=== PATIENT | female | born 1945 | race Caucasian/White ===

== ENCOUNTER → 2018-03-28 | Outpatient (CLI) | payer MEDICARE ==
[~2018-03-28] MED LIST: ALLO100 PO; ALPR.5 PO; Ativan1 MG SL; BUPR150ER PO; CONEST1.25 PO; Carisoprodol350 MG PO; DILT120 PO; ESCI20 PO; Inderal60 MG; LORA.5 PO; LOSARTAN POTAS100 MG PO; METO50 PO; MONT10T PO; Omeprazole20 M1; Synthroid88 MCG PO; TOLT4 PO; TRAM50 PO
[2018-03-28 10:58] LABS: Protein, Urine Random 13.3 mg/dL (0.0-11.9)
== END ==
LOC: LAB 08:30 → LAB SHORT 08:30
PROVIDERS: Internal Medicine
DX: N18.2 Chronic kidney disease, stage 2 (mild) (principal)
CPT/HCPCS: 82570; 84156

== ENCOUNTER 2018-07-28 11:09 | Emergency (ER) | payer MEDICARE ==
[~2018-07-28] VITALS: Ht 162.6 cm; Wt 80.7 kg
[2018-07-28] MEDS ORDERED: EUTHYROX112 MCG PO (11:30)
[2018-07-28] MEDS ORDERED: OLANZAPINE15 MG PO (11:31)
[2018-07-28 11:58] LABS: BASOPHILS ABSOLUTE AUTO 0.03 K/mm3 (0.00-0.23); BASOPHILS PERCENT AUTO 0 % (0-2); EOSINOPHILS ABSOLUTE AUTO 0.05 K/mm3 (0.00-0.68); EOSINOPHILS PERCENT AUTO 1 % (0-6); Hematocrit 42.1 % (33.0-51.0); Hemoglobin 13.1 g/dL (11.5-16.0); IMMATURE GRAN ABSOLUTE AUTO 0.01 K/mm3 (0.00-0.10); IMMATURE GRAN PERCENT AUTO 0 % (0-1); LYMPHOCYTES PERCENT AUTO 11 % (21-46); MONOCYTES ABSOLUTE AUTO 0.52 K/mm3 (0.16-1.47); MONOCYTES PERCENT AUTO 6 % (4-13); Mean Corpuscular HGB 28.1 pg (26.0-34.0); Mean Corpuscular HGB Conc 31.1 g/dL (31.5-36.5); Mean Corpuscular Volume 90 fL (80-100); Mean Platelet Volume 9.7 fL (9.1-12.4); NEUTROPHILS ABSOLUTE AUTO 7.87 K/mm3 (1.96-9.15); NEUTROPHILS PERCENT AUTO 83 % (41-73); Platelet Count 426 K/mm3 (150-400); RDW Coefficient Variation 15.2 % (11.7-14.2); RDW Standard Deviation 50.4 fL (35.1-46.3); Red Blood Cell Count 4.66 M/mm3 (3.80-5.20); White Blood Cell Count 9.48 K/mm3 (4.00-11.30)
[2018-07-28 12:12] LABS: Alanine Aminotransfer (ALT/SGP 21 U/L (12-78); Albumin, Blood 3.7 g/dL (3.4-5.0); Albumin/Globulin Ratio 0.8 (0.8-1.8); Alk Phos 126 U/L (50-136); Anion Gap 8 mmol/L (6-16); Aspartate Aminotrans (AST/SGOT 24 U/L (12-37); Bilirubin, Total 0.7 mg/dL (0.1-1.0); Blood Urea Nitrogen 15 mg/dL (8-24); Bun/Creatinine Ratio 14.6 (12.0-20.0); CO2, Blood 25 mmol/L (21-32); Calcium, Blood 9.3 mg/dL (8.5-10.1); Chloride, Blood 109 mmol/L (98-108); Creatinine, Blood 1.03 mg/dL (0.40-1.00); Free Thyroxine 1.65 ng/dL (0.70-1.60); Globulin, Blood 4.4 g/dL (2.2-4.0); Glomerular Filtration Rate 56 (60-); Glucose, Blood 121 mg/dL (70-99); Potassium, Blood 3.4 mmol/L (3.5-5.5); Salicylate <1.7 mg/dL (2.8-20.0); Sodium, Blood 142 mmol/L (136-145); Total Protein, Blood 8.1 g/dL (6.4-8.2)
[2018-07-28 12:33] LABS: Acetaminophen, Random <2.0 ug/mL (10.0-30.0); Ethanol (Alcohol), Blood, Med <3 mg/dL
[2018-07-28 14:06] LABS: Source, Urine Clean Catch
[2018-07-28 14:32] LABS: Appearance, Urine Clear (Clear); Bilirubin, Urine Neg (Neg); Blood, Urine 1+ (Neg); Color, Urine Yellow (P-Yellow); Glucose Qualitative, Urine Neg (Neg); Ketones, Urine 3+ (Neg); Leukocyte Esterase, Urine Neg (Neg); Nitrite, Urine Neg (Neg); Protein, Urine 1+ (Neg); Specific Gravity, Urine 1.025 (1.003-1.022); Urobilinogen, Urine 1+ (Normal)
[2018-07-28 14:49] LABS: U Amphetamine Screen Not Detected; U Barbituate Screen Not Detected; U Benzodiazapine Screen DETECTED; U Buprenorphine Screen Not Detected; U Cannabinoids Screen Not Detected; U Cocaine Screen Not Detected; U Methadone Screen Not Detected; U Methamphetamine Screen Not Detected; U Opiates Screen Not Detected; U Oxycodone Screen Not Detected; U Phencyclidine Screen Not Detected; U Propoxyphene Screen Not Detected
[2018-07-28 14:59] LABS: Bacteria Not Seen /hpf; Red Blood Cells, Urine 0-2 /hpf (0-2); Squamous Epithelial Cells Few /hpf (Few); White Blood Cells, Urine 0-2 /hpf (0-5)
== END 2018-07-28 15:36 | disposition home or self-care (01) ==
LOC: ER 11:09
PROVIDERS: Emergency Medicine
DX: F32.9 Major depressive disorder, single episode, unspecified (principal); F41.9 Anxiety disorder, unspecified; Z88.0 Allergy status to penicillin; Z88.2 Allergy status to sulfonamides; Z88.5 Allergy status to narcotic agent; Z88.8 Allergy status to other drugs, medicaments and biological substances; Z79.899 Other long term (current) drug therapy
CPT/HCPCS: 36415; 80053; 81001; 84439; 84443; 85025; 99284; G0480; P9612

== ENCOUNTER 2018-07-30 08:36 | Inpatient (IN) | payer MEDICARE ==
[~2018-07-30] VITALS: Ht 165.1 cm; Wt 78.4 kg
[~2018-07-30 08:36] MED LIST changes: +EUTHYROX112 MCG PO; +OLANZAPINE15 MG PO
[2018-07-30 09:31] LABS: BASOPHILS ABSOLUTE AUTO 0.04 K/mm3 (0.00-0.23); BASOPHILS PERCENT AUTO 0 % (0-2); EOSINOPHILS ABSOLUTE AUTO 0.02 K/mm3 (0.00-0.68); EOSINOPHILS PERCENT AUTO 0 % (0-6); Hematocrit 39.6 % (33.0-51.0); Hemoglobin 12.5 g/dL (11.5-16.0); IMMATURE GRAN ABSOLUTE AUTO 0.03 K/mm3 (0.00-0.10); IMMATURE GRAN PERCENT AUTO 0 % (0-1); LYMPHOCYTES ABSOLUTE AUTO 1.17 K/mm3 (0.84-5.20); LYMPHOCYTES PERCENT AUTO 12 % (21-46); MONOCYTES ABSOLUTE AUTO 0.55 K/mm3 (0.16-1.47); MONOCYTES PERCENT AUTO 6 % (4-13); Mean Corpuscular HGB 27.9 pg (26.0-34.0); Mean Corpuscular HGB Conc 31.6 g/dL (31.5-36.5); Mean Corpuscular Volume 88 fL (80-100); Mean Platelet Volume 9.9 fL (9.1-12.4); NEUTROPHILS ABSOLUTE AUTO 8.18 K/mm3 (1.96-9.15); NEUTROPHILS PERCENT AUTO 82 % (41-73); Platelet Count 429 K/mm3 (150-400); RDW Coefficient Variation 15.2 % (11.7-14.2); RDW Standard Deviation 48.7 fL (35.1-46.3); Red Blood Cell Count 4.48 M/mm3 (3.80-5.20); White Blood Cell Count 9.99 K/mm3 (4.00-11.30)
[2018-07-30 09:49] LABS: Albumin, Blood 3.6 g/dL (3.4-5.0); Albumin/Globulin Ratio 0.9 (0.8-1.8); Bilirubin, Total 1.3 mg/dL (0.1-1.0); Bun/Creatinine Ratio 19.6 (12.0-20.0); Creatinine, Blood 1.12 mg/dL (0.40-1.00); Free Thyroxine 1.67 ng/dL (0.70-1.60); Globulin, Blood 4.2 g/dL (2.2-4.0); Potassium, Blood 3.1 mmol/L (3.5-5.5); Total Protein, Blood 7.8 g/dL (6.4-8.2)
[2018-07-30 09:52] LABS: Source, Urine Clean Catch
[2018-07-30 10:09] LABS: Appearance, Urine Clear (Clear); Blood, Urine 1+ (Neg); Color, Urine Yellow (P-Yellow); Glucose Qualitative, Urine Neg (Neg); Ketones, Urine 4+ (Neg); Leukocyte Esterase, Urine 1+ (Neg); Nitrite, Urine Neg (Neg); Protein, Urine 2+ (Neg); Specific Gravity, Urine 1.025 (1.003-1.022); Urobilinogen, Urine 2+ (Normal)
[2018-07-30 10:48] LABS: Bilirubin, Urine 2+ (Neg); Red Blood Cells, Urine 0-2 /hpf (0-2); White Blood Cells, Urine 0-2 /hpf (0-5)
[2018-07-30 10:49] LABS: Bacteria Few /hpf; Mucus Mod (0-Heavy); Squamous Epithelial Cells Few /hpf (Few)
[2018-07-30 10:50] LABS: Hyaline Casts 0-2 /lpf (0-2)
[2018-07-30 10:51] LABS: U Amphetamine Screen Not Detected; U Barbituate Screen Not Detected; U Benzodiazapine Screen DETECTED; U Buprenorphine Screen Not Detected; U Cannabinoids Screen Not Detected; U Cocaine Screen Not Detected; U Methadone Screen Not Detected; U Methamphetamine Screen Not Detected; U Opiates Screen Not Detected; U Oxycodone Screen Not Detected; U Phencyclidine Screen Not Detected; U Propoxyphene Screen Not Detected
--- NOTE | 2018-07-30 16:59 | NUR ---
PT BP AT THIS TIME IS 170/70, DR MILLAN. PT ALSO REQUESTED A DOSE OF ATIVAN. NO NEW ORDERS AT THIS TIME. DR MAYBERRY STATED THAT SHE SUSPECTS THE ATIVAN TO BE CONTRIBUTING TO HER CONFUSION. PT RESTING QUIETLY IN HER BED AT THIS TIME, WATCHING TV. BED IN LOW POSITION, CALL LIGHT WITHIN REACH.
--- NOTE | 2018-07-30 17:44 | NUR ---
PATIENT DECLINED DINNER. I OFFERED ALTERNATIVE AND PATIENT STILL DECLINED AND STATED SHE WAS NOT HUNGRY. TRAY WAS REMOVED FROM ROOM. RN NOTIFIED.
--- NOTE | 2018-07-30 18:22 | NUR ---
PATIENT AMBULATED IN HALLWAYS WITH ME X2 AROUND THE LOOP THIS SHIFT WITH STAND BY ASSISTANCE.
--- NOTE | 2018-07-30 18:26 | NUR ---
SHIFT SUMMARY/ADMIT NOTE PT ARRIVED TO ROOM AT 1410. NURSE RECIEVED BEDSIDE REPORT FROM ROZINA CHRISTIANSON. PT AXO TO SELF AND PLACE BUT IS CONFUSED AND CANNOT GIVE ACCURATE MEDICAL HISTORY. PT COMPLAINS OF ANXIETY, NURSE UTILIZED ACTIVE LISTENING AND THERAPEUTIC COMMUNICATION, AMBULATION AND STIMULUS REDUCTION TO REDUCE PT STRESS LEVEL. PT DENIES PAIN, SOB AND NV. IV PATENT AND INFUSING AT THIS TIME. PT HAS ELEVATED BP, DR AWARE. PT CONCERNED THOUGH SHE STATES THAT SHE DOES NOT CHECK THIS AT HOME. BED IN LOW POSITION, CALL LIGHT WITHIN REACH, BED ALARM ON. PT CALLS APPROPRIATELY THUS FAR.
[2018-07-31 05:04] LABS: BASOPHILS ABSOLUTE AUTO 0.03 K/mm3 (0.00-0.23); BASOPHILS PERCENT AUTO 0 % (0-2); EOSINOPHILS ABSOLUTE AUTO 0.03 K/mm3 (0.00-0.68); EOSINOPHILS PERCENT AUTO 0 % (0-6); Hematocrit 37.1 % (33.0-51.0); Hemoglobin 11.8 g/dL (11.5-16.0); IMMATURE GRAN ABSOLUTE AUTO 0.03 K/mm3 (0.00-0.10); IMMATURE GRAN PERCENT AUTO 0 % (0-1); LYMPHOCYTES ABSOLUTE AUTO 1.05 K/mm3 (0.84-5.20); LYMPHOCYTES PERCENT AUTO 12 % (21-46); MONOCYTES ABSOLUTE AUTO 0.58 K/mm3 (0.16-1.47); MONOCYTES PERCENT AUTO 6 % (4-13); Mean Corpuscular HGB 28.2 pg (26.0-34.0); Mean Corpuscular HGB Conc 31.8 g/dL (31.5-36.5); Mean Corpuscular Volume 89 fL (80-100); NEUTROPHILS ABSOLUTE AUTO 7.36 K/mm3 (1.96-9.15); NEUTROPHILS PERCENT AUTO 81 % (41-73); Platelet Count 421 K/mm3 (150-400); RDW Coefficient Variation 15.1 % (11.7-14.2); RDW Standard Deviation 49.1 fL (35.1-46.3); Red Blood Cell Count 4.18 M/mm3 (3.80-5.20); White Blood Cell Count 9.08 K/mm3 (4.00-11.30)
[2018-07-31 05:28] LABS: Anion Gap 12 mmol/L (6-16); Blood Urea Nitrogen 16 mg/dL (8-24); CO2, Blood 22 mmol/L (21-32); Calcium, Blood 8.4 mg/dL (8.5-10.1); Chloride, Blood 110 mmol/L (98-108); Glucose, Blood 114 mg/dL (70-99); Potassium, Blood 2.9 mmol/L (3.5-5.5); Sodium, Blood 144 mmol/L (136-145)
--- NOTE | 2018-07-31 05:50 | NUR ---
PT FEELING ANXIOUS *LATE ENTRY* AT 2245, PT VERY ANXIOUS UP ON SIDE OF BED & HAS BEEN WALKING IN HALLS W/ASSISTANCE 3X. STATES SHE MAY BE HAVING "PALPATATIONS." INFORMED HOSPITALIST [place] & 6MG MELATONIN WAS GIVEN PER ORDERS TO HELP RELAX PT. AT 0115, PT REPORTS STILL FEELING "VERY ANXIOUS & HAVING DIFFICULTY SLEEPING." STATES MELATONIN HAS NOT HELP & "I'M AFRAID TO FALL ASLEEP BECAUSE I MIGHT NOT WAKE UP." SAT W/PT & LISTENED TO HER CONCERNS SHE REPORTS SHE FEELS SO ANXIOUS BECAUSE OF HER "MEMORY" AND NOT KNOWING WHY SHE IS SO CONFUSED. NOTIFIED DR. DEJESUS @0140 & HE ORDERED 2.5MG HALDOL IV Q6 PRN. HOWEVER WHEN I WENT INTO PT ROOM TO GIVE MEDICATION SHE REFUSED STATING, "I'VE HEARD OF THAT MEDICATION & IT'S A HEAVY ANTIPSYCHOTIC." EDUCATED PT THE DOSE WAS VERY LOW & THE MEDICATION WAS USED FOR MANY DIFFERENT PURPOSES & SHE STILL REFUSED. CHARGE NURSE ESTELLE Foster WAS NOTIFIED.
--- NOTE | 2018-07-31 07:31 | NUR ---
SHIFT SUMMARY PT HAS BEEN AWAKE ALL NIGHT. SHE IS AOX2, VERY CONFUSED & ANXIOUS. CAN STATE HER NAME & THAT SHE IS IN THE HOSPITAL BUT DOES NOT KNOW THE TOWN WE ARE IN OR WHAT TOWN SHE LIVES IN, READ PREVIOUS NOTE. VSS. DENIES N/V, SOB OR PAIN. PT HAS BEEN UP MULTIPLE TIMES AMBULATING THE [place] W/PRICING COORDINATOR. FOUND ATIVAN & SYNTHROID IN PTS PURSE THIS AM & GAVE TO DAY SHIFT RN TO BE LOCKED AWAY SAFELY. CALL LIGHT IS IN REACH & PT REMEMBERS HOW TO USE APPROPRIATELY.
[2018-07-31 07:48] LABS: Bun/Creatinine Ratio 19.8 (12.0-20.0); Creatinine, Blood 0.81 mg/dL (0.40-1.00); Glomerular Filtration Rate >60 (60-)
--- NOTE | 2018-07-31 11:42 | NUR ---
Patient was sitting on the edge of her bed and alert when I entered patient's room. I introduced myself and patient welcomed me. Patient's brother, Leroy was in the room when I entered but patient asked to speak with me in private and so Leroy stepped out. Patient openly shared about the loss of her , her addiction and her current confusion. I listened empathically, explored patient's confucianist belief's, I provided spiritual direction and I provided prayer. Patient responded well to all interventions and displayed evidence of restored marek and peace.
[2018-07-31] MEDS ORDERED: LORA1 PO (16:41)
[2018-07-31] MEDS ORDERED: METO25 PO (16:43)
[2018-07-31] MEDS ORDERED: ELIQUIS5 MG PO (16:44)
[2018-07-31] MEDS ORDERED: BUME1 PO (16:45)
[2018-07-31] MEDS ORDERED: POTA10T PO (16:46)
[2018-07-31] MEDS ORDERED: VENL150ER PO (16:47)
--- NOTE | 2018-07-31 17:53 | NUR ---
Asked by RN to come to pt's room to discuss Durable Power of Support Service Tech. Pt's brother had purchased the forms and wanted me to fill them out for them. Pt appeared a bit confused. I was uncomfortable completing the forms due to pt's confusion. Advised brother that he and pt could complete this document at a later time when pt was more mentally clear. I will remain available.
--- NOTE | 2018-07-31 19:26 | NUR ---
SHIFT SUMAMRY: NO ACUTE CHANGES TO REPORT THIS SHIFT. PT A&O X2; ANXIOUS; COOPERATIVE WITH CARE. MEDICATIONS RECONCILED THROUGH TIM'S IN [place]. LARGE PO MEDS IN [place]PLESAUCE; SMALLER MEDS WHOLE IN WATER. PSYCH MEDS RESTARTED THIS PM. REPORT GIVEN TO ONCABRAHAM HANDY.
--- NOTE | 2018-08-01 02:50 | NUR ---
07/31/18 2130 PT SITTING ON SIDE OF BED AND UNABLE TO UNDERSTAND CALL SYSTEM. REQUESTED TO HAVE TV CHANNEL CHANGED. INSTRUCTED ON CALLING BUTTON FOR NURSES AND BUTTONS FOR TV. "OH. OKAY." MEDS GIVEN AND THEN PT ASKED HOW TO CHANGE CHANNEL AGAIN. INSTRUCTED AGAIN. ASSISTED TO BED AND BED ALARM ON.
[2018-08-01 05:36] LABS: BASOPHILS ABSOLUTE AUTO 0.04 K/mm3 (0.00-0.23); BASOPHILS PERCENT AUTO 1 % (0-2); EOSINOPHILS ABSOLUTE AUTO 0.13 K/mm3 (0.00-0.68); EOSINOPHILS PERCENT AUTO 2 % (0-6); Hemoglobin 11.3 g/dL (11.5-16.0); IMMATURE GRAN ABSOLUTE AUTO 0.01 K/mm3 (0.00-0.10); IMMATURE GRAN PERCENT AUTO 0 % (0-1); LYMPHOCYTES ABSOLUTE AUTO 1.87 K/mm3 (0.84-5.20); LYMPHOCYTES PERCENT AUTO 23 % (21-46); MONOCYTES ABSOLUTE AUTO 0.76 K/mm3 (0.16-1.47); MONOCYTES PERCENT AUTO 10 % (4-13); Mean Corpuscular HGB Conc 31.4 g/dL (31.5-36.5); Mean Corpuscular Volume 89 fL (80-100); Mean Platelet Volume 10.1 fL (9.1-12.4); NEUTROPHILS ABSOLUTE AUTO 5.23 K/mm3 (1.96-9.15); NEUTROPHILS PERCENT AUTO 65 % (41-73); Platelet Count 369 K/mm3 (150-400); RDW Coefficient Variation 15.3 % (11.7-14.2); RDW Standard Deviation 49.2 fL (35.1-46.3); Red Blood Cell Count 4.03 M/mm3 (3.80-5.20); White Blood Cell Count 8.04 K/mm3 (4.00-11.30)
[2018-08-01 06:01] LABS: Alanine Aminotransfer (ALT/SGP 19 U/L (12-78); Albumin, Blood 3.1 g/dL (3.4-5.0); Albumin/Globulin Ratio 0.9 (0.8-1.8); Alk Phos 98 U/L (50-136); Anion Gap 9 mmol/L (6-16); Aspartate Aminotrans (AST/SGOT 19 U/L (12-37); Bilirubin, Total 0.8 mg/dL (0.1-1.0); Blood Urea Nitrogen 9 mg/dL (8-24); Bun/Creatinine Ratio 10.6 (12.0-20.0); CO2, Blood 25 mmol/L (21-32); Calcium, Blood 8.5 mg/dL (8.5-10.1); Chloride, Blood 112 mmol/L (98-108); Creatinine, Blood 0.85 mg/dL (0.40-1.00); Globulin, Blood 3.4 g/dL (2.2-4.0); Glomerular Filtration Rate >60 (60-); Glucose, Blood 74 mg/dL (70-99); Magnesium, Blood 1.9 mg/dL (1.6-2.4); Sodium, Blood 146 mmol/L (136-145); Total Protein, Blood 6.5 g/dL (6.4-8.2)
--- NOTE | 2018-08-01 06:43 | NUR ---
08/01/18 0630 VITALS STABLE. SLEPT WELL AFTER MILD SEDATIVE/ANTI-ANXIETY. VOIDING QS.
--- NOTE | 2018-08-01 19:15 | NUR ---
SHIFT SUMMARY: NO ACUTE CHANGES TO REPORT THIS SHIFT. PT A&O x3; CALM AND COOEPRATIVE WITH CARE. NO C/O PAIN OR NAUSEA THIS SHIFT. HOME PSYCH MEDS RESTARTED; PATIENT DISPOSITION IMPROVING. REPORT GIVEN TO ONCOMING RN.
--- NOTE | 2018-08-02 06:28 | NUR ---
08/02/18 0600 PT MORE ALERT THIS SHIFT. ALSO SHE HAS BEEN LESS ANXIOUS. VITALS STABLE AND HAD ONLY MILD TOOTH ACHE BUT DECLINED PAIN MED. ORAL INTAKE GOOD.
--- NOTE | 2018-08-02 18:31 | NUR ---
PT IS ALERT ORIENTED X2, WHEN ASKED WHERE SHE LIVED SHE COULDNT REMEMBER, THE PT WAS UP IND IN HER ROOM STEADY ON HER FEET, THE APPEARS TO BE BREATHING EASILY ON RA, THE PT WAS MEDICATED FOR HEAD ACHE X1 TODAY WITH TYLENOL WITH GOOD RESULTS, FAMILY WAS IN TO SEE THE PT, THE PT THIS AM REPORTED THAT SHE FELT AFFRAID AT THIS TIME TO RETURN TO HOME BY HERSELF, CALL LIGHT IN REACH,
--- NOTE | 2018-08-03 04:10 | NUR ---
SHIFT SUMMARY PT AWAKE, LYING FOWLERS DURING SHIFT REPORT, WATCHING TV. APPEARED WEAK AND SLOW TO RESPOND. PER REPORT, PT CONFUSED AT HOME R/T UTI AND POSSIBLE OVER MEDICATING SELF. ADMITTED FOR ACUTE ENCEPHALOPATHY. PER REPORT, IN LAST 6 MONTHS AND PT NOT DOING WELL ON HER OWN. HOME IS AN UNCLEAN DISASTER. PT IS PLEASANT BUT SOMEWHAT CONFUSED. PT REQUIRES FREQUENT ORIENTATION TO USE OF CALL LT. PT WILL SIT ON EOB AND WAIT FOR SOMEONE TO COME IN, INSTEAD OF CALLING FOR NEEDS. PT ALSO CAN'T REMEMBER WHAT SHE HAS ASKED FOR OR EVEN THAT SHE DID ASK FOR SOMETHING. SEEMS FEARFUL OF STAYING ALONE IN HER RM AND REQUESTED THAT WE COME BACK OFTEN TO CHECK ON HER. ASSURANCE OFFERED. PT HAS RESTED QUIETLY WITH EYES CLOSED, RESP E/U, SINCE FINALLY GOING TO SLEEP. NO S/SX OF DISTRESS NOTED. HAD BEEN UP TO BTHRM INDEPENDANTLY WHEN AWAKE. PT ASKED ABOUT MEASURING HER I&O'S AND THEN REPORTED THAT SHE HAD "DUMPED THE HAT" INTO THE TOILET BEFORE LETTING US KNOW THAT SHE HAD GONE. NO C/O PAIN. DENIED FURTHER NEEDS. CALL LT IN REACH. CONTINUING TO MONITOR.
[2018-08-03 14:09] LABS: BASOPHILS ABSOLUTE AUTO 0.03 K/mm3 (0.00-0.23); BASOPHILS PERCENT AUTO 0 % (0-2); EOSINOPHILS ABSOLUTE AUTO 0.15 K/mm3 (0.00-0.68); EOSINOPHILS PERCENT AUTO 2 % (0-6); Hematocrit 36.3 % (33.0-51.0); Hemoglobin 11.4 g/dL (11.5-16.0); IMMATURE GRAN ABSOLUTE AUTO 0.02 K/mm3 (0.00-0.10); IMMATURE GRAN PERCENT AUTO 0 % (0-1); LYMPHOCYTES ABSOLUTE AUTO 1.26 K/mm3 (0.84-5.20); LYMPHOCYTES PERCENT AUTO 17 % (21-46); MONOCYTES ABSOLUTE AUTO 0.51 K/mm3 (0.16-1.47); MONOCYTES PERCENT AUTO 7 % (4-13); Mean Corpuscular HGB 28.4 pg (26.0-34.0); Mean Corpuscular HGB Conc 31.4 g/dL (31.5-36.5); Mean Corpuscular Volume 90 fL (80-100); NEUTROPHILS ABSOLUTE AUTO 5.68 K/mm3 (1.96-9.15); NEUTROPHILS PERCENT AUTO 74 % (41-73); Platelet Count 369 K/mm3 (150-400); RDW Coefficient Variation 15.7 % (11.7-14.2); RDW Standard Deviation 52.2 fL (35.1-46.3); Red Blood Cell Count 4.02 M/mm3 (3.80-5.20); White Blood Cell Count 7.65 K/mm3 (4.00-11.30)
[2018-08-03 15:07] LABS: Albumin/Globulin Ratio 0.9 (0.8-1.8); Bilirubin, Total 0.4 mg/dL (0.1-1.0); Bun/Creatinine Ratio 16.2 (12.0-20.0); Calcium, Blood 8.7 mg/dL (8.5-10.1); Creatinine, Blood 0.99 mg/dL (0.40-1.00); Globulin, Blood 3.5 g/dL (2.2-4.0); Potassium, Blood 3.5 mmol/L (3.5-5.5); Total Protein, Blood 6.5 g/dL (6.4-8.2)
[2018-08-03 15:40] LABS: Thyroid Stimulating Hormone 2.93 uIU/mL (0.360-4.800)
--- NOTE | 2018-08-03 15:51 | NUR ---
PT IS A/OX2, TO PERSON AND PLACE, THE PT APPEARS TO HAVE SOME MILD AMNESIA, THE PT IS UP IND IN HER ROOM MILDLY ANXIOUS, REPORTS NOT FEELING SAFE WITH RETURN HOME ALONE, THE PT DENIED ANY PAIN T/O THE DAY, THE PT APPEARS TO BE BREATHING EASILY ON RA CALL LIGHT IN REACH, WILL CONTINUE TO MONITOR AND ASSESS FOR CHANGES
--- NOTE | 2018-08-04 03:20 | NUR ---
SHIFT SUMMARY NO ACUTE CHANGES TO PRESENT THIS SHIFT. PT HAS REMAINED PLEASANT AND CO-OP WITH CARE. RESTING QUIETLY AWAKE, DURING BS REPORT. NO C/O. BODY MOVEMENTS AND SPEECH ARE SLOW AND SOMEWHAT OFF. PT HAS DIFFICULTY GETTING OUT WHAT SHE WANTS TO SAY. THINKING SEEMS FOGGY. SHE APPEARS TO BE A LITTLE STRONGER EACH DAY. HAS BEEN INDEPENDANT TO BTHRM AND AMBULATES AROUND HER RM. BOTTOM OF HER GOWN FELL INTO THE TOILET AFTER START OF SHIFT AND PT SEEMED FRUSTRATED AT WHAT TO DO ABOUT IT. DID NOT KNOW TO ASK FOR NEW ONE OR EVEN WHAT TO SAY. PT'S BROTHER, WHO LIVES IN [place], IS TO COME IN AND DISCUSS SAFE DISCHARGE PLAN FOR PT. CALL LT IN REACH.
[2018-08-04 08:57] LABS: Antinuclear Antibody Screen Negative (Negative)
[2018-08-04 10:43] LABS: RPR Non-reactive (Nonreactive)
--- NOTE | 2018-08-04 12:50 | NUR ---
Spiritual care visit conducted. Patient was sitting up in bed and alert when I entered the room. I introduced myself and patient remembered my name and title. Patient stated that she was feeling anxious. I provided and calmimg presence and companionship. I quoted scriptures centered around peace and God's love and care for us. Patient displayed evidence of reduced stress and anxiety. Patient's brother Leroy entered the room and continued to help ease the patient. Patient was then wheeled out of the room on a wheelchair for an MRI.
--- NOTE | 2018-08-04 16:43 | NUR ---
SHIFT SUMMARY- PT AXO TO SELF, FAMILY, FOLLOWING DIRECTIONS AND DATE. PT CONFUSED/FORGETFUL AT TIMES. PT DENIES PAIN. DENIES SOB. RESP E/U ON RA. DENIES N/V. INDEPENDENT IN THE ROOM. PT WENT FOR MR OF HEAD WO CONTRAST TODAY. NO OTHER SIGNIFICANT CHANGES THIS SHIFT.
--- NOTE | 2018-08-05 04:41 | NUR ---
SHIFT SUMMARY NO ACUTE CHANGES TO PRESENT THIS SHIFT. VISITORS HERE DURING SHIFT REPORT. PT STATED THAT IT WAS HER SON FROM [place], WHO HAD COME UP TO CLEAN UP HER HOUSE. PT'S BROTHER FROM [place] TO ASSIST WITH SAFE D/C PLAN PT IS NOT ABLE TO CARE FOR HERSELF W/O ASSIST ANYMORE. PT HAS BEEN DEPRESSED SINCE HUSBANDS PASSING AND OVER MEDICATING HERSELF. PT SEEMS TO BE IMPROVING SOME OVER THE LAST COUPLE OF DAYS, BUT IS STILL SLOW TO RESPOND AND HAS DIFFICULTY REMEMBERING OFTEN. REPORTED THAT SHE HAS NOT HAD A BM SINCE 08/01 AND REQUESTED BOWEL CARE. PT WENT TO SLEEP BY TIME DR ALFARO COULD BE NOTIFIED FOR ORDERS. WILL START BOWEL CARE THIS AM, WHEN PT WAKES UP. INDEPENDANT IN RM. DENIES NEEDS. CALL LT IN REACH.
--- NOTE | 2018-08-06 06:07 | NUR ---
NOC SHIFT SUMMARY THIS PATIENT HAS BEEN PLESANT AND COOPERATIVE WITH CARE THIS NIGHT. SHE REQUESTED EYE DROPS THIS EVENING. SHORTLY AFTER EVENING MEDS SHE WENT TO SLEEP HAS SLEPT RESTFULLY THIS NIGHT. CURRENTLY APPEARS TO BE SLEEPING AND IN NO ACUTE DISTRESS. WILL CONTINUE TO MONITOR.
[2018-08-06 08:15] LABS: BASOPHILS ABSOLUTE AUTO 0.03 K/mm3 (0.00-0.23); BASOPHILS PERCENT AUTO 1 % (0-2); EOSINOPHILS ABSOLUTE AUTO 0.31 K/mm3 (0.00-0.68); EOSINOPHILS PERCENT AUTO 5 % (0-6); IMMATURE GRAN ABSOLUTE AUTO 0.01 K/mm3 (0.00-0.10); IMMATURE GRAN PERCENT AUTO 0 % (0-1); LYMPHOCYTES ABSOLUTE AUTO 1.71 K/mm3 (0.84-5.20); LYMPHOCYTES PERCENT AUTO 28 % (21-46); MONOCYTES ABSOLUTE AUTO 0.46 K/mm3 (0.16-1.47); MONOCYTES PERCENT AUTO 7 % (4-13); Mean Corpuscular HGB 28.3 pg (26.0-34.0); Mean Corpuscular HGB Conc 31.6 g/dL (31.5-36.5); Mean Corpuscular Volume 90 fL (80-100); Mean Platelet Volume 10.3 fL (9.1-12.4); NEUTROPHILS ABSOLUTE AUTO 3.69 K/mm3 (1.96-9.15); NEUTROPHILS PERCENT AUTO 59 % (41-73); Platelet Count 348 K/mm3 (150-400); RDW Coefficient Variation 15.6 % (11.7-14.2); RDW Standard Deviation 50.9 fL (35.1-46.3); Red Blood Cell Count 4.24 M/mm3 (3.80-5.20); White Blood Cell Count 6.21 K/mm3 (4.00-11.30)
[2018-08-06 08:34] LABS: Alanine Aminotransfer (ALT/SGP 18 U/L (12-78); Albumin, Blood 3.1 g/dL (3.4-5.0); Albumin/Globulin Ratio 0.9 (0.8-1.8); Alk Phos 95 U/L (50-136); Anion Gap 8 mmol/L (6-16); Aspartate Aminotrans (AST/SGOT 23 U/L (12-37); Bilirubin, Total 0.5 mg/dL (0.1-1.0); Blood Urea Nitrogen 13 mg/dL (8-24); Bun/Creatinine Ratio 16.8 (12.0-20.0); CO2, Blood 28 mmol/L (21-32); Calcium, Blood 8.6 mg/dL (8.5-10.1); Chloride, Blood 110 mmol/L (98-108); Creatinine, Blood 0.77 mg/dL (0.40-1.00); Globulin, Blood 3.5 g/dL (2.2-4.0); Glomerular Filtration Rate >60 (60-); Glucose, Blood 88 mg/dL (70-99); Potassium, Blood 3.2 mmol/L (3.5-5.5); Sodium, Blood 146 mmol/L (136-145); Total Protein, Blood 6.6 g/dL (6.4-8.2)
--- NOTE | 2018-08-06 17:19 | NUR ---
SHIFT SUMMARY: PT IS COOPERATIVE WITH CARE. SHE HAS A STEADY GAIT WHEN ABULATING AND ABLE TO COMPLETE HER ADL'S UNASSISTED. SHE DOESN'T USE HER CALL LIGHT FOR ASSIST, SHE WILL WAIT UNTIL SOMEONE CHECKS IN ON HER. SHE IS ABLE TO MAKE NEEDS KNOWN. WCTM UNTIL REPORT GIVEN TO NEXT SHIFT RN.
--- NOTE | 2018-08-07 04:34 | NUR ---
NOC SHIFT SUMMARY THIS PATIENT HAS BEEN PLEASANT AND COMPLIANT WITH CARE THIS NIGHT. SHE STATED EARLY THIS EVENING THAT SHE WAS FEELING IMPROVED FROM YESTERDAY. SHE WENT TO BED SHORTLY AFTER RECIEVING EVENING MEDS AND HAS SLEPT RESTFULLY THROUGH THE NIGHT. CURRENLTY SLEEPING. APPEARS IN NO ACUTE DISTRESS. WILL CONTINUE TO MONITOR.
--- NOTE | 2018-08-07 19:31 | NUR ---
SHIFT SUMMARY: SHE BECAME VERY ANXIOUS WHEN D/C PLANNING CAME IN AND TOLD HER THE PHYSICIAN WAS GOING TO D/C HER TO AN ASSISTED LIVING FACILITY. PT'S BROTHER JACKIE CAME IN TO SEE HER AND REDIRECTED HER ATTENTION TO POSSIBLE IN HOME CARE PROVIDER. D/C PLANNING CAME TO THE ROOM TO DISCUSS OPTIONS WITH PT AND HER BROTHER WHOM IS MEDICAL POA. PT'S SON CAME IN THIS EVENING, HE VERBILIZED HE WILL BE HELPING HIS MOM AND UNCLE WITH D/C PLANNING NEEDS.
[2018-08-08] MEDS ORDERED: CONEST.625 PO (09:26)
--- NOTE | 2018-08-08 10:56 | NUR ---
SUMMARY/DISCHARGE PT DISCHARGED TO HOME WITH HOME HEALTH WITH THE BROTHER, PT HAS BEEN ALERT AND ORIENTED BUT FORGETFUL, PLEASANT AND COOPERATIVE WITH CARE, DISCHARGE INSTRUCITONS GIVEN TO THE PT AND THE BROTHER, EXPLAINED THEM MULTIPLE TIMES TO THE PT, CARE MANAGEMENT CAME AND GAVE THE PT A LIST OF PCP'S WELL EXPLAINED HOME HEALTH TO THE PT AND THE BROTHER, MEDS RETRIEVED FROM THE PHARMACY, CALLED SECURITY TO SEE IF THE PT HAD ANYTHING LOCKED UP, SHE DID NOT, PT TAKEN OUT SAFELY VIA WHEELCHAIR
== END 2018-08-08 10:53 | disposition home health service (06) | DRG 884 ==
LOC: ER 08:36 → MEDS 08:37 → EDPENDDIS 08-07 11:59 → ENPENDDIS 08-07 11:59 → MEDS 08-08 10:53
PROVIDERS: Internal Medicine; Physician Assistant; ADMIT Internal Medicine
DX: F03.91 Unspecified dementia, unspecified severity, with behavioral disturbance (principal); F05 Delirium due to known physiological condition; N39.0 Urinary tract infection, site not specified; E87.6 Hypokalemia; E03.9 Hypothyroidism, unspecified; F41.9 Anxiety disorder, unspecified; E86.0 Dehydration; F32.9 Major depressive disorder, single episode, unspecified
CPT/HCPCS: 36415; 70450; 70551; 80048; 80053; 81001; 82607; 82746; 83735; 84439; 84443; 85025; 85651; 86038; 86592; 87086; 93005; 93010; 96361; 96365; 96372; 99285-25; G0378; J0744; J1650; J7030; P9612

== ENCOUNTER 2018-09-19 19:09 | Inpatient (IN) | payer MEDICARE ==
[~2018-09-19] VITALS: Ht 172.7 cm; Wt 76.2 kg
[~2018-09-19 19:09] MED LIST changes: +BUME1 PO; +CONEST.625 PO; +ELIQUIS5 MG PO; +METO25 PO; +POTA10T PO; +VENL150ER PO
[2018-09-19 19:55] LABS: BASOPHILS ABSOLUTE AUTO 0.02 K/mm3 (0.00-0.23); BASOPHILS PERCENT AUTO 0 % (0-2); EOSINOPHILS ABSOLUTE AUTO 0.05 K/mm3 (0.00-0.68); EOSINOPHILS PERCENT AUTO 0 % (0-6); Hematocrit 38.3 % (33.0-51.0); Hemoglobin 12.2 g/dL (11.5-16.0); IMMATURE GRAN ABSOLUTE AUTO 0.29 K/mm3 (0.00-0.10); IMMATURE GRAN PERCENT AUTO 2 % (0-1); LYMPHOCYTES ABSOLUTE AUTO 1.19 K/mm3 (0.84-5.20); LYMPHOCYTES PERCENT AUTO 7 % (21-46); MONOCYTES ABSOLUTE AUTO 1.08 K/mm3 (0.16-1.47); MONOCYTES PERCENT AUTO 6 % (4-13); Mean Corpuscular HGB 28.8 pg (26.0-34.0); Mean Corpuscular HGB Conc 31.9 g/dL (31.5-36.5); Mean Corpuscular Volume 90 fL (80-100); Mean Platelet Volume 10.1 fL (9.1-12.4); NEUTROPHILS ABSOLUTE AUTO 15.51 K/mm3 (1.96-9.15); NEUTROPHILS PERCENT AUTO 85 % (41-73); Platelet Count 392 K/mm3 (150-400); RDW Coefficient Variation 14.4 % (11.7-14.2); RDW Standard Deviation 47.8 fL (35.1-46.3); Red Blood Cell Count 4.24 M/mm3 (3.80-5.20); White Blood Cell Count 18.14 K/mm3 (4.00-11.30)
[2018-09-19] MEDS ORDERED: LO-DOSE ASPIRIN81 MG PO (20:11)
[2018-09-19] MEDS ORDERED: LORA1 PO (20:11)
[2018-09-19 20:18] LABS: Alanine Aminotransfer (ALT/SGP 21 U/L (12-78); Albumin, Blood 3.1 g/dL (3.4-5.0); Albumin/Globulin Ratio 0.8 (0.8-1.8); Alk Phos 105 U/L (50-136); Anion Gap 7 mmol/L (6-16); Aspartate Aminotrans (AST/SGOT 34 U/L (12-37); Bilirubin, Total 0.7 mg/dL (0.1-1.0); Blood Urea Nitrogen 13 mg/dL (8-24); Bun/Creatinine Ratio 18.2 (12.0-20.0); CO2, Blood 24 mmol/L (21-32); Calcium, Blood 8.8 mg/dL (8.5-10.1); Chloride, Blood 113 mmol/L (98-108); Creatinine, Blood 0.72 mg/dL (0.40-1.00); Globulin, Blood 3.8 g/dL (2.2-4.0); Glomerular Filtration Rate >60 (60-); Glucose, Blood 103 mg/dL (70-99); Potassium, Blood 3.5 mmol/L (3.5-5.5); Sodium, Blood 144 mmol/L (136-145); Total Protein, Blood 6.9 g/dL (6.4-8.2)
[2018-09-19 20:23] LABS: International Normalized Ratio 1.14; Prothrombin Time Results 11.9 Sec (9.7-11.5)
[2018-09-19 20:55] LABS: Source, Urine Catheter
[2018-09-19 21:00] LABS: Bilirubin, Urine Neg (Neg); Blood, Urine 2+ (Neg); Glucose Qualitative, Urine Neg (Neg); Ketones, Urine 2+ (Neg); Leukocyte Esterase, Urine 2+ (Neg); Nitrite, Urine Pos (Neg); Protein, Urine 2+ (Neg); Specific Gravity, Urine 1.015 (1.003-1.022); Urobilinogen, Urine NORM (Normal); pH, Urine 6.5 (5.0-8.0)
[2018-09-19 21:02] LABS: Appearance, Urine Hazy (Clear); Color, Urine Yellow (P-Yellow)
[2018-09-19 21:04] LABS: White Blood Cells, Urine 25-50 /hpf (0-5)
[2018-09-19 21:05] LABS: Amorphous Light (0-Heavy); Bacteria Many /hpf; Mucus Mod (0-Heavy); Squamous Epithelial Cells Mod /hpf (Few)
--- NOTE | 2018-09-20 02:30 | NUR ---
PT ADMITTED FROM ED AT APPROX 2150 FOR PUBIX RAMUS FX. A&O X4, VS WNL. PT SUFFERED A FALL AFTER S/SX OF POSSIBLE TIA. PT REPORTS SUDDENLY FEELING NUMB AND WEAK ON ON RIGHT SIDE. REPORTS BEING NON-COMPLIENT WITH HOME MEDICATIONS. UPON ARRIVING TO UNIT, PT HAS MILD SLURRED SPEECH, NO FACIAL DROOP. EQUAL STRENGTH BILATERALLY. PERRLA. PT DENIES N/T TO ALL EXT. SINUS ANNIE AT HR OF 54 PER TRAFFIC SUPERVISOR. GIVEN 25 MCG OF FENTANYL PER EMAR. BEDFAST AT THIS TIME. USING BEDPAN PRN. EDUCATED ON SAFETY AND IMPORTANCE OF TAKING MEDICATIONS. WILL CTM. PT STABLE AT THIS TIME.
[2018-09-20 04:28] LABS: Hematocrit 34.5 % (33.0-51.0); Hemoglobin 10.8 g/dL (11.5-16.0); Mean Corpuscular HGB 27.8 pg (26.0-34.0); Mean Corpuscular HGB Conc 31.3 g/dL (31.5-36.5); Mean Corpuscular Volume 89 fL (80-100); Platelet Count 329 K/mm3 (150-400); RDW Coefficient Variation 14.5 % (11.7-14.2); RDW Standard Deviation 46.3 fL (35.1-46.3); Red Blood Cell Count 3.88 M/mm3 (3.80-5.20); White Blood Cell Count 8.98 K/mm3 (4.00-11.30)
[2018-09-20 04:47] LABS: Anion Gap 6 mmol/L (6-16); Blood Urea Nitrogen 16 mg/dL (8-24); Bun/Creatinine Ratio 23.6 (12.0-20.0); CO2, Blood 28 mmol/L (21-32); Calcium, Blood 8.1 mg/dL (8.5-10.1); Chloride, Blood 111 mmol/L (98-108); Creatinine, Blood 0.68 mg/dL (0.40-1.00); Glomerular Filtration Rate >60 (60-); Glucose, Blood 89 mg/dL (70-99); Potassium, Blood 3.1 mmol/L (3.5-5.5); Sodium, Blood 145 mmol/L (136-145)
[2018-09-20] MEDS ORDERED: VENL150ER PO (06:16)
[2018-09-20] MEDS ORDERED: OLAN10 PO (06:17)
[2018-09-20] MEDS ORDERED: Lopressor 25 mg25 MG PO (06:19)
[2018-09-20] MEDS ORDERED: Synthroid112 MCG PO (06:20)
[2018-09-20 06:21] LABS: Influenza A Negative (NEGATIVE); Influenza B Negative (NEGATIVE)
[2018-09-20] MEDS ORDERED: ELIQUIS2.5 MG (06:21)
--- NOTE | 2018-09-20 10:14 | NUR ---
Echocardiogram completed.
--- NOTE | 2018-09-20 16:45 | NUR ---
SHIFT SUMMARY NO ACUTE CHANGES THIS SHIFT. VSS. ORTHO CONSULTED ON PT AND PELVIC FXS ARE NONSURGICAL. PT/OT WORKING WITH PT. PT UP WITH SBA USING FWW + GB TO COMMODE. UP IN CHAIR. PT MEDICATED WITH 25 MCG FENTANYL PRN FOR PAIN AND ALSO RECEIVING SCHEDULED ORAL TYLENOL. IV IS SL EXCEPT FOR ABX TO TREAT UTI. SPEECH EVAL COMPLETED TODAY. ECHO COMPLETED TODAY. PT IS ALERT AND ORIENTED, BUT DOES GET FORGETFUL AT TIMES. CALL LIGHT WITHIN REACH. PT'S BROTHER IN AT BEDSIDE FOR SUPPORT.
--- NOTE | 2018-09-21 07:06 | NUR ---
SHIFT SUMMARY PT ADMITTED FOR NONSURGICAL PUBIC RAMUS FX. AWAITING PLACEMENT. PT IS A 1 ASSIST W/ FWW FOR AMBULATION TO [facility]. SHE IS WORKING WITH PT/OT. PT HAD A UTI ON ADMIT AND IS BEING TREATED. MEDICATED FOR PAIN PER EMAR. TELE WAS SINUS WITH [facility] AT TIME OF ASSESSMENT. REPORT PASSED TO ONCOMING SHIFT.
--- NOTE | 2018-09-21 09:40 | NUR ---
ASSUMED CARE OF PT FROM ROZINA HU
--- NOTE | 2018-09-21 14:33 | NUR ---
PT TO MRI
--- NOTE | 2018-09-21 15:02 | NUR ---
back to room
--- NOTE | 2018-09-21 18:05 | NUR ---
SUMMARY NO ACUTE CHANGES SINCE ASSUMING CARE OF PT. MEDICATED PER ORDERS FOR PAIN. PT ABLE TO GET UP W/FWW AND 1 PERSON ASSIST. HAD MRI OF HEAD TODAY. USES CALL LIGHT APPROPRIATELY.
--- NOTE | 2018-09-22 04:26 | NUR ---
NO SIG CHANGES DURING NIGHT. PT SLEPT WELL T/O SHIFT AND PAIN MANAGED BETTER WITH PO NARCOTICS. PLAN FOR SNF PLACEMENT IF QUALIFIES OR POSSIBLE DC HOME WITH BROTHER.
[2018-09-22 04:50] LABS: Anion Gap 5 mmol/L (6-16); Blood Urea Nitrogen 18 mg/dL (8-24); Bun/Creatinine Ratio 23.6 (12.0-20.0); CHOL/HDL RATIO 3.6; CO2, Blood 26 mmol/L (21-32); Calcium, Blood 8.5 mg/dL (8.5-10.1); Chloride, Blood 113 mmol/L (98-108); Cholesterol 145 mg/dL (50-200); Creatinine, Blood 0.76 mg/dL (0.40-1.00); Glomerular Filtration Rate >60 (60-); Glucose, Blood 91 mg/dL (70-99); HDL Cholesterol 40 mg/dL (>39); Low Density Lipoprotein Chol 79 mg/dL (0-110); Potassium, Blood 3.5 mmol/L (3.5-5.5); Sodium, Blood 144 mmol/L (136-145); Triglycerides 130 mg/dL (30-160); Very Low Density Lipoprot Chol 26 mg/dL (6-32)
--- NOTE | 2018-09-22 16:19 | NUR ---
CALLED REPORT TO ALETA, SPOKE TO ANN.
== END 2018-09-22 16:38 | DRG 535 ==
LOC: ER 19:09 → SURS 20:46
PROVIDERS: Emergency Medicine; Internal Medicine; Nurse Practitioner Acute Care; ADMIT Hospitalist
DX: S32.591A Other specified fracture of right pubis, initial encounter for closed fracture (principal); I63.81 Other cerebral infarction due to occlusion or stenosis of small artery; N39.0 Urinary tract infection, site not specified; R29.810 Facial weakness; R47.81 Slurred speech; E03.9 Hypothyroidism, unspecified; I25.10 Atherosclerotic heart disease of native coronary artery without angina pectoris; F03.90 Unspecified dementia, unspecified severity, without behavioral disturbance, psychotic disturbance, mood disturbance, and anxiety; F41.1 Generalized anxiety disorder; M25.551 Pain in right hip; W18.30XA Fall on same level, unspecified, initial encounter; Y92.003 Bedroom of unspecified non-institutional (private) residence as the place of occurrence of the external cause; R53.1 Weakness; Z79.82 Long term (current) use of aspirin; I48.2 Chronic atrial fibrillation; E87.6 Hypokalemia; B96.20 Unspecified Escherichia coli [E. coli] as the cause of diseases classified elsewhere; B95.2 Enterococcus as the cause of diseases classified elsewhere; Z91.14 Patient's other noncompliance with medication regimen
CPT/HCPCS: 36415; 70450; 70551; 71045; 72170; 80048; 80053; 80061; 81001; 83036; 84439; 84443; 85025; 85027; 85610; 87077; 87086; 87186; 87804; 92523; 93005; 93010; 93306; 93880; 96374; 97110; 97162; 97165; 97530; 97535; 99285-25; J1956; J2270; J3010; J3480; J7030; P9612

== ENCOUNTER → 2019-02-19 | Outpatient (CLI) | payer MEDICARE ==
[~2019-02-19] MED LIST changes: +ELIQUIS2.5 MG; +LO-DOSE ASPIRIN81 MG PO; +LORA1 PO; +Lopressor 25 mg25 MG PO; +OLAN10 PO; +Synthroid112 MCG PO
[2019-02-23 14:31] LABS: Stool Occult Bld Immuno 1 Negative (NEGATIVE)
== END ==
LOC: LAB 14:00 → LAB SHORT 14:00
PROVIDERS: Nurse Practitioner Family
DX: Z12.11 Encounter for screening for malignant neoplasm of colon (principal)
CPT/HCPCS: G0328